=== PATIENT | female | born 2005 | race Caucasian/White ===

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

== ENCOUNTER 2023-10-03 19:03 | Emergency (ER) | payer OTHER ==
[~2023-10-03] VITALS: Ht 172.7 cm; Wt 52.6 kg
[~2023-10-03 19:03] MED LIST changes: +ALBUTEROL0.63 MG/3 IH; +ZITHROMAX500 MG PO; +ZYNCOF 20-400120 ML PO
[2023-10-03 20:49] LABS: HEMATOCRIT 37.2 % (36.0-45.00); HEMOGLOBIN 12.6 g/dL (12.0-15.00); MEAN CELL VOLUME 88.9 fL (80.00-100.00); MEAN CORPUSCULAR HEMOGLOBIN 30.1 pg (27.00-32.0); MEAN CORPUSCULAR HGB CONC 33.8 g/dl (32.0-36.0); PLATELET COUNT 145 K/uL (150-450); RED BLOOD COUNT 4.18 M/uL (4.00-6.00); RED CELL DISTRIBUTION WIDTH 13.5 % (11.5-14.5)
[2023-10-03 21:45] LABS: ALBUMIN 4.2 gm/dL (3.4-5.0); BILIRUBIN TOTAL 0.46 mg/dL (0.3-1.2); CREATININE SERUM 0.77 mg/dL (0.55-1.02); GFR 95.57; GLOBULINA 3.5 G/DL (2.4-3.5); POTASSIUM 3.61 mEq/L (3.5-5.1); TOTAL PROTEIN 7.7 gm/dL (6.4-8.2)
[2023-10-03 22:02] LABS: PH,URINE 7.5 (5.0-8.0); URINE APPEARANCE Cloudy; URINE BILIRRUBIN Negative (NEGATIVE); URINE BLOOD Moderate; URINE COLOR Yellow; URINE GLUCOSE Negative (NEGATIVE); URINE LEUKOCYTE Negative; URINE NITRATE Negative; URINE PROTEIN Negative (NEGATIVE)
[2023-10-03 22:08] LABS: URINE RBC 21.1 uL (0.0-20.8); URINE WBC 23.8 uL (0.0-23.2)
== END 2023-10-03 22:53 | disposition home or self-care (01) ==
LOC: EMR PED 19:03
PROVIDERS: Emergency Medicine Pediatric Emergency Medicine
DX: R10.2 Pelvic and perineal pain (principal); N83.202 Unspecified ovarian cyst, left side

== ENCOUNTER 2024-05-19 23:22 | Emergency (ER) | payer OTHER ==
[~2024-05-19] VITALS: Ht 175.3 cm; Wt 68.0 kg
[2024-05-20] MEDS ORDERED: HYDROCODONE/CHLORPHEN P-STIREX 5 ML ML PO STA (01:11)
[2024-05-20 02:13] LABS: HEMATOCRIT 38.7 % (36.0-45.00); HEMOGLOBIN 13.1 g/dL (12.0-15.00); MEAN CELL VOLUME 91.4 fL (80.00-100.00); MEAN CORPUSCULAR HEMOGLOBIN 30.9 pg (27.00-32.0); MEAN CORPUSCULAR HGB CONC 33.8 g/dl (32.0-36.0); PLATELET COUNT 174 K/uL (150-450); RED BLOOD COUNT 4.23 M/uL (4.00-6.00); RED CELL DISTRIBUTION WIDTH 13.2 % (11.5-14.5)
== END 2024-05-20 02:51 | disposition home or self-care (01) ==
LOC: ER 23:23
DX: J00 Acute nasopharyngitis [common cold] (principal); Z20.822 Contact with and (suspected) exposure to COVID-19

== ENCOUNTER 2024-10-03 22:06 | Emergency (ER) | payer OTHER ==
[~2024-10-03] VITALS: Ht 172.7 cm; Wt 59.0 kg
[2024-10-04] MEDS ORDERED: DEXTROSE 5 % AND 0.9 % NACL 500 ML IV STA (02:17)
[2024-10-04] MEDS ORDERED: FAMOtidine 10 MG/ML (4ML VIAL) IV PUSH STA (02:18)
[2024-10-04] MEDS ORDERED: HYOSCYAMINE SULFATE 0.125 MG TAB.SUBL ONE (02:24)
[2024-10-04] MEDS ORDERED: FAMOTIDINE/PF 20 MG/2 ML VIAL ONE (02:24)
[2024-10-04] MEDS ORDERED: HYOSCYAMINE SULFATE 0.125 MG TAB.SUBL SL ONE (02:30)
[2024-10-04 02:44] LABS: HEMATOCRIT 40.2 % (36.0-45.00); HEMOGLOBIN 13.2 g/dL (12.0-15.00); MEAN CELL VOLUME 92.1 fL (80.00-100.00); MEAN CORPUSCULAR HEMOGLOBIN 30.3 pg (27.00-32.0); MEAN CORPUSCULAR HGB CONC 32.9 g/dl (32.0-36.0); PLATELET COUNT 185 K/uL (150-450); RED BLOOD COUNT 4.36 M/uL (4.00-6.00); RED CELL DISTRIBUTION WIDTH 13.6 % (11.5-14.5)
[2024-10-04 03:05] LABS: CALCIUM 9.4 mg/dL (8.5-10.1); CREATININE SERUM 0.75 mg/dL (0.55-1.02); GFR 97.55; POTASSIUM 4.12 mEq/L (3.5-5.1)
== END 2024-10-04 03:52 | disposition home or self-care (01) ==
LOC: ER 22:09
DX: K29.70 Gastritis, unspecified, without bleeding (principal); K21.9 Gastro-esophageal reflux disease without esophagitis; R10.9 Unspecified abdominal pain

== ENCOUNTER 2024-11-23 10:20 | Emergency (ER) | payer OTHER ==
[~2024-11-23] VITALS: Ht 172.7 cm; Wt 55.8 kg
[2024-11-23 10:34] VITALS: BP 113/69; O2SAT 100
[2024-11-23] MEDS ORDERED: ACETAMINOPHEN 500 MG GEL..CAP PO ONE ×2 (12:00→12:01)
[2024-11-23] MEDS ORDERED: BENZONATATE 100 MG CAPSULE PO ONE (12:00)
[2024-11-23 12:06] LABS: HEMATOCRIT 39.5 % (36.0-45.00); HEMOGLOBIN 13.4 g/dL (12.0-15.00); MEAN CELL VOLUME 93.2 fL (80.00-100.00); MEAN CORPUSCULAR HEMOGLOBIN 31.6 pg (27.00-32.0); MEAN CORPUSCULAR HGB CONC 33.9 g/dl (32.0-36.0); PLATELET COUNT 156 K/uL (150-450); RED BLOOD COUNT 4.24 M/uL (4.00-6.00); RED CELL DISTRIBUTION WIDTH 13.6 % (11.5-14.5)
[2024-11-23 12:36] LABS: CALCIUM 9.2 mg/dL (8.5-10.1); CREATININE SERUM 0.71 mg/dL (0.55-1.02); GFR 103.91; POTASSIUM 3.85 mEq/L (3.5-5.1)
[2024-11-23] MEDS ORDERED: NASAL MIST126 ML NASAL (14:36)
[2024-11-23] MEDS ORDERED: CETIRIZINE HCL5 MG PO (14:36)
[2024-11-23] MEDS ORDERED: ZITHROMAX200 MG PO (14:36)
[2024-11-23] MEDS ORDERED: BENZONATATE100 MG PO (14:36)
== END 2024-11-23 14:46 | disposition home or self-care (01) ==
LOC: ER 10:23
PROVIDERS: General Practice
DX: E16.2 Hypoglycemia, unspecified (principal); J98.8 Other specified respiratory disorders; Z20.822 Contact with and (suspected) exposure to COVID-19

== ENCOUNTER → 2024-12-04 | Emergency (ER) | payer OTHER ==
[~2024-12-04] VITALS: Ht 172.7 cm; Wt 55.3 kg
[~2024-12-04] MED LIST changes: +BENZONATATE100 MG PO; +CETIRIZINE HCL5 MG PO; +FAMOTIDINE/PF 20 MG/2 ML VIAL ONE; +FAMOtidine 10 MG/ML (4ML VIAL) IV STA; +NASAL MIST126 ML NASAL; +ONDANSETRON HCL 2 MG/ML VIAL IM STA; +ONDANSETRON HCL 2 MG/ML VIAL ONE; +ZITHROMAX200 MG PO
[2024-12-04 13:17] LABS: HEMATOCRIT 41.8 % (36.0-45.00); HEMOGLOBIN 13.9 g/dL (12.0-15.00); MEAN CELL VOLUME 94.7 fL (80.00-100.00); MEAN CORPUSCULAR HEMOGLOBIN 31.6 pg (27.00-32.0); MEAN CORPUSCULAR HGB CONC 33.3 g/dl (32.0-36.0); PLATELET COUNT 219 K/uL (150-450); RED BLOOD COUNT 4.41 M/uL (4.00-6.00); RED CELL DISTRIBUTION WIDTH 12.9 % (11.5-14.5)
[2024-12-04 13:50] LABS: PH,URINE 8.5 (5.0-8.0); URINE APPEARANCE Clear; URINE BILIRRUBIN Negative (NEGATIVE); URINE BLOOD Negative; URINE COLOR Yellow; URINE GLUCOSE Negative (NEGATIVE); URINE KETONE 15 (NEGATIVE); URINE LEUKOCYTE Negative; URINE NITRATE Negative; URINE PROTEIN Negative (NEGATIVE)
[2024-12-04 13:54] LABS: URINE BACTERIA 177.4 uL (0.0-1933); URINE EPITHELIAL CELLS 6.4 uL (0.0-38.8); URINE RBC 6.1 uL (0.0-20.8); URINE WBC 8.5 uL (0.0-23.2)
[2024-12-04 14:06] LABS: URINE CAST 0.44 uL (0.0-1.40)
[2024-12-04 14:15] LABS: CALCIUM 9.5 mg/dL (8.5-10.1); CREATININE SERUM 0.78 mg/dL (0.55-1.02); GFR 93.23; POTASSIUM 3.97 mEq/L (3.5-5.1)
== END | disposition home or self-care (01) ==
LOC: ER 11:06
PROVIDERS: General Practice
DX: K52.89 Other specified noninfective gastroenteritis and colitis (principal); Z20.822 Contact with and (suspected) exposure to COVID-19